=== PATIENT | female | born 1975 | race Caucasian/White ===

== ENCOUNTER 2017-09-16 16:19 | Inpatient (IN) | payer MEDICAID ==
[2017-09-16] MEDS: LACTATED RINGER'S 1,000 ML IV* ×2 (17:15→23:32)
[2017-09-16] MEDS: BETAMET NA PHOS/AC(6 MG/ML) 5ML INJ IM (17:53)
[2017-09-16] MEDS: TERBUTALINE 1 MG/ML INJ SC (17:54)
[2017-09-16] MEDS ORDERED: TERBUTALINE 1 MG/ML INJ SC (18:00)
[2017-09-16] MEDS ORDERED: GLUCOSE GEL 15 GRAM TUBE PO ×2 (19:00)
[2017-09-16] MEDS ORDERED: GLUCOSE GEL 15 GRAM TUBE BUCCAL (19:00)
[2017-09-16] MEDS ORDERED: DEXTROSE 50% 50 ML SYRINGE IV ×2 (19:00)
[2017-09-16] MEDS ORDERED: GLUCAGON 1 MG INJ IM (19:00)
[2017-09-16] MEDS ORDERED: ACETAMINOPHEN 325 MG TAB PO (20:00)
[2017-09-16] MEDS ORDERED: BETAMET NA PHOS/AC(6 MG/ML) 5ML INJ IM (20:00)
[2017-09-16] MEDS: metFORMIN 850 MG TAB PO (20:41)
[2017-09-16] MEDS: NIFEdipine 10 MG CAP PO ×2 (20:41→23:50)
[2017-09-16] MEDS: LACTATED RINGER'S 1,000 ML IV (20:41)
[2017-09-17] MEDS: TERBUTALINE 1 MG/ML INJ SC (02:19)
[2017-09-17] MEDS: LACTATED RINGER'S 1,000 ML IV ×2 (03:48→12:02)
[2017-09-17] MEDS ORDERED: NIFEdipine 10 MG CAP (03:54)
[2017-09-17] MEDS: NIFEdipine 10 MG CAP PO ×2 (03:58→12:01)
[2017-09-17] MEDS: LACTATED RINGER'S 1,000 ML IV* ×2 (03:59→05:00)
[2017-09-17] MEDS: BETAMET NA PHOS/AC(6 MG/ML) 5ML INJ IM (16:39)
== END 2017-09-17 17:15 | disposition home or self-care (01) | DRG 782 ==
LOC: OBT 16:19 → L-D 16:20 → OBT 09-17 17:15 → L-D 18:52 → OBT 18:52 → L-D 18:15
PROVIDERS: Obstetrics & Gynecology
DX: O62.9 Abnormality of forces of labor, unspecified (principal); O09.523 Supervision of elderly multigravida, third trimester; Z3A.36 36 weeks gestation of pregnancy
CPT/HCPCS: 36415; 82962; 96360; 96372

== ENCOUNTER 2017-09-25 05:10 | Inpatient (IN) | payer MEDICAID ==
[2017-09-25] MEDS: LACTATED RINGER'S 1,000 ML IV ×3 (08:20→23:43)
[2017-09-25] MEDS: AMPICILLIN 2 GM/NS (PMX) 100 ML IV (08:27)
[2017-09-25] MEDS ORDERED: CARBOPROST 250 MCG INJ IM (08:30)
[2017-09-25] MEDS ORDERED: LIDOCAINE 1% (MPF) 30 ML INJ INJ (08:30)
[2017-09-25] MEDS ORDERED: METHYLERGONOVINE 0.2 MG INJ IM (08:30)
[2017-09-25] MEDS ORDERED: BUTORPHANOL 2 MG INJ IV ×2 (08:30)
[2017-09-25] MEDS ORDERED: MISOPROSTOL 200 MCG TAB PR (08:30)
[2017-09-25] MEDS ORDERED: OXYTOCIN 30 UNITS/LR 500 ML IV ×2 (08:30)
[2017-09-25 08:33] LABS: ADD MAN DIFF? NO
[2017-09-25 08:37] LABS: WHITE BLOOD COUNT 9.6 10^3/ul (4.8-10.8)
[2017-09-25 08:37] LABS: BASOPHILS % 0.2 % (0.0-2.0); EOSINOPHILS # 0.1 10^3/ul (0.0-0.5); EOSINOPHILS % 0.5 % (0.0-7.0); HEMATOCRIT 34.2 % (37.0-47.0); HEMOGLOBIN 11.9 g/dl (12.0-16.0); LYMPHOCYTES # 2.8 10^3/ul (0.8-2.9); LYMPHOCYTES % 28.6 % (15.0-51.0); MEAN CORPUSCULAR HEMOGLOBIN 27.7 pg (29.0-33.0); MEAN CORPUSCULAR HGB CONC 34.8 g/dl (32.0-37.0); MEAN CORPUSCULAR VOLUME 79.7 fl (82.0-101.0); MEAN PLATELET VOLUME 10.9 fl (7.4-10.4); MONOCYTE # 0.4 10^3/ul (0.3-0.9); MONOCYTES % 3.7 % (0.0-11.0); NEUTROPHIL # 6.4 10^3/ul (1.6-7.5); NEUTROPHILS % 66.6 % (39.0-77.0); PLATELET COUNT 263 10^3/UL (140-415); RED BLOOD COUNT 4.29 10^6/ul (4.20-5.40); RED CELL DISTRIBUTION WIDTH 14.7 % (11.5-14.5)
[2017-09-25 08:41] LABS: INR 0.93; PROTIME 12.5 Sec (11.9-14.9)
[2017-09-25 08:42] LABS: PARTIAL THROMBOPLASTIN TIME 25.8 Sec (25.0-35.0)
[2017-09-25 08:57] LABS: GLUCOSE 110 mg/dl (70-220)
[2017-09-25] MEDS ORDERED: AMPICILLIN 1 GM/NS (PMX) 50 ML IV (12:30)
[2017-09-25 13:24] LABS: HEPATITIS B SURFACE ANTIGEN NEGATIVE (NEGATIVE)
[2017-09-25] MEDS: metFORMIN 850 MG TAB PO (17:26)
[2017-09-25 22:22] LABS: RAPID PLASMA REAGIN NONREACTIVE (NR)
[2017-09-26] MEDS: OXYTOCIN 30 UNITS/LR 500 ML IV ×2 (00:48→01:17)
[2017-09-26] MEDS ORDERED: MINERAL OIL LIGHT 10 ML VIAL TOP (00:55)
[2017-09-26] MEDS: IBUPROFEN 600 MG TAB PO ×5 (02:06→23:55)
[2017-09-26] MEDS: LACTATED RINGER'S 1,000 ML IV* (03:07)
[2017-09-26] MEDS ORDERED: MISOPROSTOL 200 MCG TAB PR (03:30)
[2017-09-26] MEDS ORDERED: CARBOPROST 250 MCG INJ IM (03:30)
[2017-09-26] MEDS ORDERED: DIBUCAINE 1% 30 GM OINT PR (03:30)
[2017-09-26] MEDS ORDERED: HYDROCODONE/APAP (5/325) TAB PO (03:30)
[2017-09-26] MEDS ORDERED: METHYLERGONOVINE 0.2 MG INJ IM (03:30)
[2017-09-26] MEDS ORDERED: ZOLPIDEM 5 MG TAB PO (03:30)
[2017-09-26] MEDS ORDERED: OXYTOCIN 30 UNITS/LR 500 ML IV (03:30)
[2017-09-26] MEDS: HYDROCODONE/APAP (5/325) TAB PO (05:11)
[2017-09-26] MEDS: LANOLIN 7 GM TUBE TOP (05:12)
[2017-09-26] MEDS: BENZOCAINE 20% 56 ML SPRAY TOP (05:13)
[2017-09-26] MEDS: WITCH HAZEL/GLYCERIN PAD PR (05:13)
[2017-09-26] MEDS: LACTATED RINGER'S 1,000 ML IV (06:03)
[2017-09-26] MEDS: ACCU-CHEK XX ×4 (07:30→20:05)
[2017-09-26] MEDS: MAGNESIUM HYDROXIDE 30ML CUP PO ×2 (08:28→21:25)
[2017-09-26] MEDS: SENNA/DOCUSATE NA (8.6MG/50MG) TAB PO ×2 (08:28→21:25)
[2017-09-26] MEDS: metFORMIN (XR) 500 MG TAB PO ×2 (08:28→21:25)
[2017-09-26 14:57] LABS: ADD MAN DIFF? NO
[2017-09-26 14:58] LABS: WHITE BLOOD COUNT 9.5 10^3/ul (4.8-10.8)
[2017-09-26 14:58] LABS: BASOPHILS % 0.2 % (0.0-2.0); EOSINOPHILS % 0.3 % (0.0-7.0); HEMATOCRIT 32.7 % (37.0-47.0); HEMOGLOBIN 11.3 g/dl (12.0-16.0); LYMPHOCYTES # 2.2 10^3/ul (0.8-2.9); MEAN CORPUSCULAR HGB CONC 34.6 g/dl (32.0-37.0); MEAN CORPUSCULAR VOLUME 81.1 fl (82.0-101.0); MEAN PLATELET VOLUME 10.6 fl (7.4-10.4); MONOCYTE # 0.4 10^3/ul (0.3-0.9); MONOCYTES % 3.8 % (0.0-11.0); NEUTROPHIL # 6.9 10^3/ul (1.6-7.5); NEUTROPHILS % 72.4 % (39.0-77.0); PLATELET COUNT 238 10^3/UL (140-415); RED BLOOD COUNT 4.03 10^6/ul (4.20-5.40); RED CELL DISTRIBUTION WIDTH 14.6 % (11.5-14.5)
[2017-09-27] MEDS: IBUPROFEN 600 MG TAB PO ×3 (05:37→18:24)
[2017-09-27] MEDS: ACCU-CHEK XX ×4 (08:44→20:05)
[2017-09-27] MEDS: SENNA/DOCUSATE NA (8.6MG/50MG) TAB PO ×2 (09:06→20:52)
[2017-09-27] MEDS: MAGNESIUM HYDROXIDE 30ML CUP PO ×2 (09:06→20:51)
[2017-09-27] MEDS: metFORMIN (XR) 500 MG TAB PO ×2 (09:07→20:51)
[2017-09-28] MEDS: IBUPROFEN 600 MG TAB PO ×4 (01:28→17:35)
[2017-09-28] MEDS: metFORMIN (XR) 500 MG TAB PO (08:51)
[2017-09-28] MEDS: MAGNESIUM HYDROXIDE 30ML CUP PO (08:53)
[2017-09-28] MEDS: SENNA/DOCUSATE NA (8.6MG/50MG) TAB PO (08:53)
[2017-09-28] MEDS: DIPHTH/TET/ACEL PERTUSS (ADULT) 0.5 ML VIAL IM* (09:00)
[2017-09-28] MEDS: VARICELLA VACCINE LIVE/PF 1,350 UNIT/0.5 ML ML SC* (09:00)
[2017-09-28] MEDS: MEASLES,MUMPS,RUBELLA VACCINE INJ SC* (09:00)
== END 2017-09-28 19:02 | disposition home or self-care (01) | DRG 775 ==
LOC: OBT 05:10 → PP1 09-26 04:21 → L-D 05:10 → OBT 06:35 → L-D 06:35
PROVIDERS: Obstetrics & Gynecology
PROC: 4A1HXCZ Monitoring of Products of Conception, Cardiac Rate, External Approach (ICD-10-PCS; 2017-09-25)
PROC: 10E0XZZ Delivery of Products of Conception, External Approach (ICD-10-PCS; principal; 2017-09-26)
PROC: 10907ZC Drainage of Amniotic Fluid, Therapeutic from Products of Conception, Via Natural or Artificial Opening (ICD-10-PCS; 2017-09-26)
DX: O24.429 Gestational diabetes mellitus in childbirth, unspecified control (principal); O76 Abnormality in fetal heart rate and rhythm complicating labor and delivery; O69.81X0 Labor and delivery complicated by cord around neck, without compression, not applicable or unspecified; Z37.0 Single live birth; Z3A.37 37 weeks gestation of pregnancy
CPT/HCPCS: 82947; 82962; 85025; 85610; 85730; 86592; 86900; 86901; 87340